=== PATIENT | male | born 1930 | race Caucasian/White ===

== ENCOUNTER 2017-03-08 03:25 | Inpatient (IN) | payer OTHER ==
[~2017-03-08] VITALS: Ht 177.8 cm; Wt 102.1 kg
[~2017-03-08 03:25] MED LIST: ASPIRIN325 MG PO; BACITRACIN28.4 GM TP; COLAZAL750 MG PO; DOXYCYCLINE HYC50 MG PO; FLOXIN OTIC SOLN5 ML RIGHT EAR; LEVOFLOXACIN500 MG PO; LISINOPRIL10 MG PO; NORVASC10 MG PO; PRILOSEC20 MG PO; TAMSULOSIN HCL0.4 MG PO; TOBRAMYCIN-DEXAM5 ML BOTH EYES; ZOFRAN4 MG PO
[2017-03-08 04:03] LABS: EOSINOPHIL (%) 1.2 % (0-5); EOSINOPHIL COUNT 0.1 K/uL (0-0.3); HEMATOCRIT 51.2 % (38.0-50.0); IMMATURE GRANULOCYTE (%) 0.4 % (0.0-0.7); INSTRUMENT ABS NEUTROPHIL CT 6.9 K/uL; LYMPHOCYTE COUNT 1.1 K/uL (1.0-2.8); MCH 32.4 PG (29.0-34.0); MCV 98.1 FL (86-99); MEAN PLAT.VOLUME 10.9 uM^3 (9.0-12.4); MONOCYTE COUNT 0.8 K/uL (0-0.8); NEUTROPHIL (%) 77.2 % (45-76); NEUTROPHIL COUNT 6.9 K/uL (1.8-6.4); PLATELET COUNT 208 K/uL (156-360); RBC DIS.WIDTH-CV 12.9 % (11.8-14.6); RBC DIS.WIDTH-SD 46.7 % (39-53); RED BLOOD COUNT 5.22 M/uL (4.00-5.50)
[2017-03-08 04:14] LABS: CHLORIDE 103 mEq/L (99-109); INTER. NORMALIZED RATIO 1.1; POTASSIUM 4.3 mEq/L (3.7-5.4); PROTHROMBIN TIME 11.3 (9.2-11.2); PTT 28.1 (25-32); SODIUM 139 mEq/L (136-147)
[2017-03-08 04:15] LABS: MAGNESIUM 1.9 mg/dL (1.3-2.7)
[2017-03-08 04:16] LABS: GLUCOSE 140 mg/dL (70-99)
[2017-03-08 04:18] LABS: ANION GAP 12 MEQ/L (2-14)
[2017-03-08 04:20] LABS: GFR ESTIMATE (CALCULATED) > 59 mL/min/
[2017-03-08 04:21] LABS: UREA NITROGEN (BUN) 23 mg/dL (9-23)
[2017-03-08 04:25] LABS: TROP-I INTERPRETATION NEGATIVE; TROPONIN-I 0.06 ng/mL (0.0-0.30)
[2017-03-08 08:26] LABS: D-DIMER ELISA 1.68 mg/L FEU (< 0.57)
[2017-03-08] MEDS ORDERED: FLOMAX0.4 MG PO (11:01)
[2017-03-08] MEDS ORDERED: METHYLPREDNISOLO4 M1 PO (11:04)
[2017-03-08] MEDS ORDERED: CEFTIN500 MG PO (11:04)
[2017-03-08 15:16] LABS: POINT-OF-CARE METER ID UU13113702
[2017-03-08 15:18] VITALS: BP 119/69
[2017-03-08 16:41] LABS: TROP-I INTERPRETATION NEGATIVE; TROPONIN-I 0.06 ng/mL (0.0-0.30)
[2017-03-08 19:43] VITALS: BP 119/67
[2017-03-09] VITALS (7 sets, daily range): BP systolic 96–140; BP diastolic 57–75
[2017-03-09 06:14] LABS: EOSINOPHIL (%) 0 % (0-5); HEMATOCRIT 46.6 % (38.0-50.0); IMMATURE GRANULOCYTE COUNT 0.1 K/uL; INSTRUMENT ABS NEUTROPHIL CT 10.7 K/uL; LYMPHOCYTE COUNT 0.3 K/uL (1.0-2.8); MCH 32.4 PG (29.0-34.0); MCHC 32.2 G/DL (30.0-36.0); MCV 100.6 FL (86-99); MEAN PLAT.VOLUME 11.3 uM^3 (9.0-12.4); MONOCYTE (%) 1.6 % (3-12); MONOCYTE COUNT 0.2 K/uL (0-0.8); NEUTROPHIL (%) 94.4 % (45-76); NEUTROPHIL COUNT 10.7 K/uL (1.8-6.4); PLATELET COUNT 209 K/uL (156-360); RBC DIS.WIDTH-CV 13.2 % (11.8-14.6); RBC DIS.WIDTH-SD 48.8 % (39-53); RED BLOOD COUNT 4.63 M/uL (4.00-5.50); WHITE BLOOD COUNT 11.3 K/uL (4.1-10.2)
[2017-03-09 06:42] LABS: ANION GAP 12 MEQ/L (2-14); CHLORIDE 101 MEQ/L (99-109); GFR ESTIMATE (CALCULATED) > 59 mL/min/; GLUCOSE 165 mg/dL (70-99); SAMPLE HEMOLYSIS CHECK 0; SAMPLE ICTERIC CHECK 0; SAMPLE LIPEMIA CHECK 0; SODIUM 134 MEQ/L (136-147); UREA NITROGEN (BUN) 31 mg/dL (9-23)
[2017-03-09 11:29] LABS: TROP-I INTERPRETATION NEGATIVE; TROPONIN-I 0.05 ng/mL (0.0-0.30)
[2017-03-09 16:50] LABS: POINT-OF-CARE METER ID UU14174216
[2017-03-09 21:22] LABS: POINT-OF-CARE METER ID UU14174216
[2017-03-10 03:00] VITALS: BP 147/69
[2017-03-10 07:06] LABS: EOSINOPHIL (%) 0 % (0-5); HEMATOCRIT 45.5 % (38.0-50.0); IMMATURE GRANULOCYTE (%) 0.9 % (0.0-0.7); IMMATURE GRANULOCYTE COUNT 0.1 K/uL; LYMPHOCYTE COUNT 0.3 K/uL (1.0-2.8); MCH 32.4 PG (29.0-34.0); MCHC 32.1 G/DL (30.0-36.0); MCV 100.9 FL (86-99); MEAN PLAT.VOLUME 11.1 uM^3 (9.0-12.4); MONOCYTE (%) 3.3 % (3-12); MONOCYTE COUNT 0.5 K/uL (0-0.8); NEUTROPHIL (%) 93.6 % (45-76); PLATELET COUNT 185 K/uL (156-360); RBC DIS.WIDTH-CV 13.1 % (11.8-14.6); RBC DIS.WIDTH-SD 48.6 % (39-53); RED BLOOD COUNT 4.51 M/uL (4.00-5.50); WHITE BLOOD COUNT 13.9 K/uL (4.1-10.2)
[2017-03-10 07:11] VITALS: BP 132/72
[2017-03-10 07:37] LABS: ALKALINE PHOSPHATASE 17 IU/L (3-129); ANION GAP 8 MEQ/L (2-14); CHLORIDE 97 MEQ/L (99-109); GFR ESTIMATE (CALCULATED) > 59 mL/min/; GLUCOSE 149 mg/dL (70-99); SAMPLE HEMOLYSIS CHECK 0; SAMPLE ICTERIC CHECK 0; SAMPLE LIPEMIA CHECK 0; SODIUM 132 MEQ/L (136-147); TOTAL BILIRUBIN 0.5 MG/DL (0.0-1.0); UREA NITROGEN (BUN) 39 mg/dL (9-23)
[2017-03-10 11:44] LABS: POINT-OF-CARE METER ID UU14174216
[2017-03-10 12:00] VITALS: BP 115/59
[2017-03-10 16:08] LABS: POINT-OF-CARE METER ID UU14174216
[2017-03-10 17:21] VITALS: BP 135/68
[2017-03-10 19:00] VITALS: BP 132/67
[2017-03-10 23:00] VITALS: BP 132/68
[2017-03-11 03:15] VITALS: BP 132/70
[2017-03-11 06:26] LABS: EOSINOPHIL (%) 0 % (0-5); HEMATOCRIT 43.1 % (38.0-50.0); IMMATURE GRANULOCYTE (%) 0.7 % (0.0-0.7); IMMATURE GRANULOCYTE COUNT 0.1 K/uL; INSTRUMENT ABS NEUTROPHIL CT 12.9 K/uL; LYMPHOCYTE COUNT 0.3 K/uL (1.0-2.8); MCH 32.3 PG (29.0-34.0); MCHC 32.5 G/DL (30.0-36.0); MCV 99.3 FL (86-99); MEAN PLAT.VOLUME 11.5 uM^3 (9.0-12.4); MONOCYTE (%) 3.3 % (3-12); MONOCYTE COUNT 0.5 K/uL (0-0.8); NEUTROPHIL (%) 93.8 % (45-76); NEUTROPHIL COUNT 12.9 K/uL (1.8-6.4); PLATELET COUNT 180 K/uL (156-360); RBC DIS.WIDTH-CV 13.1 % (11.8-14.6); RBC DIS.WIDTH-SD 47.8 % (39-53); RED BLOOD COUNT 4.34 M/uL (4.00-5.50); WHITE BLOOD COUNT 13.8 K/uL (4.1-10.2)
[2017-03-11 07:11] LABS: ALKALINE PHOSPHATASE 16 IU/L (3-129); ANION GAP 7 MEQ/L (2-14); CHLORIDE 99 MEQ/L (99-109); GFR ESTIMATE (CALCULATED) > 59 mL/min/; GLUCOSE 154 mg/dL (70-99); SAMPLE HEMOLYSIS CHECK 0; SAMPLE ICTERIC CHECK 0; SAMPLE LIPEMIA CHECK 0; SODIUM 133 MEQ/L (136-147); TOTAL BILIRUBIN 0.6 MG/DL (0.0-1.0); UREA NITROGEN (BUN) 35 mg/dL (9-23)
[2017-03-11 07:34] LABS: POINT-OF-CARE METER ID UU14174216
[2017-03-11 09:00] VITALS: BP 144/72
[2017-03-11 11:16] LABS: POINT-OF-CARE METER ID UU14174216
[2017-03-11 13:00] VITALS: BP 123/67
[2017-03-11 16:22] LABS: POINT-OF-CARE METER ID UU14174216
[2017-03-11 18:00] VITALS: BP 137/77
[2017-03-11 21:24] VITALS: BP 127/77
[2017-03-11 22:02] LABS: POINT-OF-CARE METER ID UU14174216
[2017-03-12 00:35] VITALS: BP 123/67
[2017-03-12 04:32] VITALS: BP 147/81
[2017-03-12 06:17] LABS: EOSINOPHIL (%) 0 % (0-5); IMMATURE GRANULOCYTE (%) 0.8 % (0.0-0.7); IMMATURE GRANULOCYTE COUNT 0.1 K/uL; INSTRUMENT ABS NEUTROPHIL CT 11.4 K/uL; LYMPHOCYTE COUNT 0.2 K/uL (1.0-2.8); MCH 31.9 PG (29.0-34.0); MCV 99.8 FL (86-99); MONOCYTE (%) 3.5 % (3-12); MONOCYTE COUNT 0.4 K/uL (0-0.8); NEUTROPHIL (%) 93.7 % (45-76); NEUTROPHIL COUNT 11.4 K/uL (1.8-6.4); PLATELET COUNT 173 K/uL (156-360); RBC DIS.WIDTH-CV 13.2 % (11.8-14.6); RBC DIS.WIDTH-SD 48.1 % (39-53); RED BLOOD COUNT 4.51 M/uL (4.00-5.50); WHITE BLOOD COUNT 12.1 K/uL (4.1-10.2)
[2017-03-12 06:47] LABS: ALKALINE PHOSPHATASE 18 IU/L (3-129); ANION GAP 7 MEQ/L (2-14); CHLORIDE 98 MEQ/L (99-109); GFR ESTIMATE (CALCULATED) > 59 mL/min/; GLUCOSE 161 mg/dL (70-99); POTASSIUM 4.6 MEQ/L (3.7-5.4); SAMPLE HEMOLYSIS CHECK 0; SAMPLE ICTERIC CHECK 0; SAMPLE LIPEMIA CHECK 0; SODIUM 136 MEQ/L (136-147); TOTAL BILIRUBIN 0.7 MG/DL (0.0-1.0); UREA NITROGEN (BUN) 31 mg/dL (9-23)
[2017-03-12 09:00] VITALS: BP 145/83
[2017-03-12 12:00] VITALS: BP 141/76
[2017-03-12 12:10] LABS: POINT-OF-CARE METER ID UU13113781
[2017-03-12 16:22] VITALS: BP 137/75
[2017-03-12 20:16] VITALS: BP 147/83
[2017-03-12 21:08] LABS: POINT-OF-CARE METER ID UU14174216
[2017-03-13 00:13] VITALS: BP 124/75
[2017-03-13 04:24] VITALS: BP 134/74
[2017-03-13] MEDS ORDERED: LASIX20 MG PO (07:40)
[2017-03-13] MEDS ORDERED: CARDIZEM CD,CA240 MG PO (07:40)
[2017-03-13] MEDS ORDERED: XARELTO20 MG PO (07:40)
[2017-03-13] MEDS ORDERED: DUONEB 2.5-0.5 M3 ML AEROSOL (07:40)
[2017-03-13] MEDS ORDERED: PREDNISONE10 M1 PO (07:40)
[2017-03-13 07:43] LABS: POINT-OF-CARE METER ID UU14174216
[2017-03-13 09:00] VITALS: BP 143/70
[2017-03-13 11:27] LABS: POINT-OF-CARE METER ID UU14174216
== END 2017-03-13 13:17 | DRG 308 ==
LOC: EME → EDBD 03:25 → EME 03:25 → 4EAST 07:17 → EDOF 07:17 → 4EAST 15:10
PROVIDERS: Emergency Medicine; Internal Medicine; Nurse Practitioner Adult Health; Pediatrics
DX: I48.91 Unspecified atrial fibrillation (principal); J18.9 Pneumonia, unspecified organism; J81.0 Acute pulmonary edema; J90 Pleural effusion, not elsewhere classified; I50.30 Unspecified diastolic (congestive) heart failure; I10 Essential (primary) hypertension; K21.9 Gastro-esophageal reflux disease without esophagitis; N40.0 Benign prostatic hyperplasia without lower urinary tract symptoms; E11.9 Type 2 diabetes mellitus without complications; I25.10 Atherosclerotic heart disease of native coronary artery without angina pectoris; E66.9 Obesity, unspecified; I48.92 Unspecified atrial flutter; I35.0 Nonrheumatic aortic (valve) stenosis; I44.7 Left bundle-branch block, unspecified; H91.93 Unspecified hearing loss, bilateral; Z68.33 Body mass index [BMI] 33.0-33.9, adult; Z87.891 Personal history of nicotine dependence; Z95.5 Presence of coronary angioplasty implant and graft; Z80.0 Family history of malignant neoplasm of digestive organs
CPT/HCPCS: 71010; 71020; 71275; 80048; 80053; 82948; 83735; 84484; 85025; 85379; 85610; 85730; 93005; 93306; 94640; 94640 76; 94799; 97530 GO; 99202; 99281; 99285; J0456; J0696; J1650; J1815; J1940; J2930; J7050

== ENCOUNTER 2017-09-03 07:44 | Emergency (ER) | payer OTHER ==
[~2017-09-03] VITALS: Ht 180.3 cm; Wt 96.0 kg
[~2017-09-03 07:44] MED LIST changes: +CARDIZEM CD,CA240 MG PO; +CEFTIN500 MG PO; +DUONEB 2.5-0.5 M3 ML AEROSOL; +FLOMAX0.4 MG PO; +LASIX20 MG PO; +METHYLPREDNISOLO4 M1 PO; +PREDNISONE10 M1 PO; +XARELTO20 MG PO
[2017-09-03 08:14] LABS: EOSINOPHIL (%) 2.8 % (0-5); EOSINOPHIL COUNT 0.2 K/uL (0-0.3); HEMATOCRIT 46.4 % (38.0-50.0); IMMATURE GRANULOCYTE (%) 0.3 % (0.0-0.7); INSTRUMENT ABS NEUTROPHIL CT 4.4 K/uL; LYMPHOCYTE COUNT 0.9 K/uL (1.0-2.8); MCH 30.6 PG (29.0-34.0); MCHC 32.8 G/DL (30.0-36.0); MCV 93.4 FL (86-99); MEAN PLAT.VOLUME 9.9 uM^3 (9.0-12.4); MONOCYTE COUNT 0.8 K/uL (0-0.8); NEUTROPHIL (%) 69.5 % (45-76); NEUTROPHIL COUNT 4.4 K/uL (1.8-6.4); PLATELET COUNT 209 K/uL (156-360); RBC DIS.WIDTH-CV 13.4 % (11.8-14.6); RBC DIS.WIDTH-SD 45.9 % (39-53); RED BLOOD COUNT 4.97 M/uL (4.00-5.50); WHITE BLOOD COUNT 6.4 K/uL (4.1-10.2)
[2017-09-03 08:46] LABS: ANION GAP 7 MEQ/L (2-14); CHLORIDE 100 MEQ/L (99-109); POTASSIUM 4.3 MEQ/L (3.7-5.4); SAMPLE HEMOLYSIS CHECK 0; SAMPLE ICTERIC CHECK 0; SAMPLE LIPEMIA CHECK 0; SODIUM 138 MEQ/L (136-147)
[2017-09-03 08:51] LABS: GFR ESTIMATE (CALCULATED) > 59 mL/min/; GLUCOSE 132 mg/dL (70-99); UREA NITROGEN (BUN) 15 mg/dL (9-23)
[2017-09-03 09:24] LABS: INFLUENZA A VIRAL ANTIGEN NEGATIVE; INFLUENZA B VIRAL ANTIGEN NEGATIVE
[2017-09-03] MEDS ORDERED: ZITHROMAX Z-PA250 MG PO (10:47)
[2017-09-03 11:25] VITALS: BP 137/83
== END 2017-09-03 11:25 | disposition home or self-care (01) ==
LOC: EME 07:44
PROVIDERS: Emergency Medicine
DX: J20.9 Acute bronchitis, unspecified (principal); J02.9 Acute pharyngitis, unspecified; R09.81 Nasal congestion; I44.7 Left bundle-branch block, unspecified; I25.2 Old myocardial infarction; Z95.1 Presence of aortocoronary bypass graft
CPT/HCPCS: 71020; 80048; 85025; 87502; 93005; 99281; 99284

== ENCOUNTER 2018-02-11 11:11 | Inpatient (IN) | payer OTHER ==
[~2018-02-11] VITALS: Ht 180.3 cm; Wt 180.3 kg
[~2018-02-11 11:11] MED LIST changes: +ZITHROMAX Z-PA250 MG PO
[2018-02-11 11:35] LABS: HEMOGLOBIN 11.9 G/DL (12.5-16.6); MCH 29.5 PG (29.0-34.0); MCHC 32.2 G/DL (30.0-36.0); MCV 91.8 FL (86-99); PLATELET COUNT 276 K/uL (156-360); RBC DIS.WIDTH-CV 14.2 % (11.8-14.6); RBC DIS.WIDTH-SD 47.8 % (39-53); RED BLOOD COUNT 4.03 M/uL (4.00-5.50); WHITE BLOOD COUNT 6.1 K/uL (4.1-10.2)
[2018-02-11 11:43] LABS: CHLORIDE 103 mEq/L (99-109); POTASSIUM 4.3 mEq/L (3.7-5.4); SODIUM 138 mEq/L (136-147)
[2018-02-11 11:44] LABS: GLUCOSE 119 mg/dL (70-99)
[2018-02-11 11:48] LABS: CREATININE 0.9 mg/dL (0.6-1.3); GFR ESTIMATE (CALCULATED) > 59 mL/min/ (58.99-99999)
[2018-02-11 11:49] LABS: UREA NITROGEN (BUN) 11 mg/dL (9-23)
[2018-02-11 11:55] LABS: TROP-I INTERPRETATION NEGATIVE; TROPONIN-I 0.23 ng/mL (0.0-0.30)
[2018-02-11 14:16] LABS: HDL CHOLESTEROL 28 MG/DL (Desirable>=40); LDL CHOLESTEROL 66 mg/dL (Desirable<100); NON-HDL CHOLESTEROL 75 mg/dL (Desirable<160); TOTAL CHOLESTEROL 103 mg/dL (Desirable<200); TRIGLYCERIDES 46 MG/DL (Normal: <150)
[2018-02-11] MEDS ORDERED: CARTIA XT240 MG PO (14:51)
[2018-02-11] MEDS ORDERED: PROAIR HFA8.5 GM IH (14:58)
[2018-02-11] MEDS ORDERED: LOSARTAN POTASS25 MG PO (14:58)
[2018-02-11] MEDS ORDERED: ASPIR-LOW81 MG PO (14:59)
[2018-02-11] MEDS ORDERED: ADVAIR 250/501 DISK IH (15:00)
[2018-02-11 15:05] VITALS: BP 133/76
[2018-02-11 18:03] LABS: TROP-I INTERPRETATION NEGATIVE; TROPONIN-I 0.26 ng/mL (0.0-0.30)
[2018-02-11 20:00] VITALS: BP 104/62
[2018-02-11 23:00] VITALS: BP 82/52
[2018-02-12 01:25] LABS: TROP-I INTERPRETATION NEGATIVE; TROPONIN-I 0.28 ng/mL (0.0-0.30)
[2018-02-12 03:32] VITALS: BP 107/62
[2018-02-12 05:46] LABS: HEMATOCRIT 34.7 % (38.0-50.0); HEMOGLOBIN 10.6 G/DL (12.5-16.6); MCH 28.6 PG (29.0-34.0); MCHC 30.5 G/DL (30.0-36.0); MCV 93.5 FL (86-99); PLATELET COUNT 258 K/uL (156-360); RBC DIS.WIDTH-CV 14.4 % (11.8-14.6); RBC DIS.WIDTH-SD 49.1 % (39-53); RED BLOOD COUNT 3.71 M/uL (4.00-5.50); WHITE BLOOD COUNT 6.8 K/uL (4.1-10.2)
[2018-02-12 06:08] LABS: CHLORIDE 101 MEQ/L (99-109); CREATININE 1.1 MG/DL (0.6-1.3); GFR ESTIMATE (CALCULATED) > 59 mL/min/ (58.99-99999); GLUCOSE 114 mg/dL (70-99); POTASSIUM 4.5 MEQ/L (3.7-5.4); SODIUM 138 MEQ/L (136-147); UREA NITROGEN (BUN) 14 mg/dL (9-23)
[2018-02-12 10:13] LABS: TROP-I INTERPRETATION NEGATIVE
[2018-02-12 10:37] VITALS: BP 100/55
[2018-02-12 15:54] VITALS: BP 164/71
[2018-02-12 18:30] VITALS: BP 110/67
[2018-02-12 19:30] VITALS: BP 115/64
[2018-02-12 23:20] VITALS: BP 107/65
[2018-02-13 04:13] VITALS: BP 108/65
[2018-02-13 05:47] LABS: BASOPHIL (%) 0.5 % (0-1); EOSINOPHIL (%) 2.5 % (0-5); EOSINOPHIL COUNT 0.2 K/uL (0-0.3); HEMOGLOBIN 11.3 G/DL (12.5-16.6); IMMATURE GRANULOCYTE (%) 0.2 % (0.0-0.7); LYMPHOCYTE (%) 20.1 % (15-42); LYMPHOCYTE COUNT 1.2 K/uL (1.0-2.8); MCH 28.7 PG (29.0-34.0); MCHC 30.5 G/DL (30.0-36.0); MCV 93.9 FL (86-99); MONOCYTE (%) 14.6 % (3-12); MONOCYTE COUNT 0.9 K/uL (0-0.8); NEUTROPHIL (%) 62.1 % (45-76); NEUTROPHIL COUNT 3.8 K/uL (1.8-6.4); PLATELET COUNT 253 K/uL (156-360); RBC DIS.WIDTH-CV 14.4 % (11.8-14.6); RBC DIS.WIDTH-SD 49.6 % (39-53); RED BLOOD COUNT 3.94 M/uL (4.00-5.50)
[2018-02-13 06:34] LABS: CHLORIDE 99 MEQ/L (99-109); CREATININE 0.9 MG/DL (0.6-1.3); GFR ESTIMATE (CALCULATED) > 59 mL/min/ (58.99-99999); GLUCOSE 120 mg/dL (70-99); SODIUM 137 MEQ/L (136-147); UREA NITROGEN (BUN) 14 mg/dL (9-23)
[2018-02-13 09:00] VITALS: BP 116/70
[2018-02-13] MEDS ORDERED: ATORVASTATIN CA40 MG PO (10:00)
[2018-02-13] MEDS ORDERED: CARVEDILOL3.125 MG PO (10:00)
[2018-02-13] MEDS ORDERED: IMDUR30 MG PO (10:00)
[2018-02-13] MEDS ORDERED: CLOPIDOGREL75 MG PO (10:00)
[2018-02-13] MEDS ORDERED: NITROSTAT0.4 MG SL (10:00)
[2018-02-13] MEDS ORDERED: ASPIR-LOW81 MG PO (10:01)
== END 2018-02-13 11:28 | disposition home or self-care (01) | DRG 286 ==
LOC: EME 11:11 → EDOF 12:36 → 5WEST 12:36 → EDOF 12:36 → ENRESERV 12:37 → 5WEST 14:57 → ENRESERV 02-12 11:09 → 5WEST 02-12 11:51 → ENRESERV 02-12 14:43 → 5WEST 02-12 14:45 → ENRESERV 02-12 16:22 → 5WEST 02-12 16:30 → 4EAST 02-12 18:28
PROVIDERS: Emergency Medicine; Internal Medicine
DX: I25.110 Atherosclerotic heart disease of native coronary artery with unstable angina pectoris (principal); I11.0 Hypertensive heart disease with heart failure; I50.23 Acute on chronic systolic (congestive) heart failure; I95.9 Hypotension, unspecified; K92.2 Gastrointestinal hemorrhage, unspecified; E11.9 Type 2 diabetes mellitus without complications; E78.5 Hyperlipidemia, unspecified; I08.0 Rheumatic disorders of both mitral and aortic valves; I42.9 Cardiomyopathy, unspecified; I44.7 Left bundle-branch block, unspecified; I48.0 Paroxysmal atrial fibrillation; K21.9 Gastro-esophageal reflux disease without esophagitis; N40.0 Benign prostatic hyperplasia without lower urinary tract symptoms; Z79.01 Long term (current) use of anticoagulants; I25.2 Old myocardial infarction; Z95.1 Presence of aortocoronary bypass graft
CPT/HCPCS: 71045; 71046; 80048; 80061; 83880; 84484; 85025; 85027; 85347; 93005; 99281; 99285; C1769; C1887; C1894; G0378; J0461; J1644; J1940; J2250; J2405

== ENCOUNTER 2018-04-23 16:46 | Inpatient (IN) | payer OTHER ==
[~2018-04-23] VITALS: Ht 177.8 cm; Wt 116.7 kg
[~2018-04-23 16:46] MED LIST changes: +ADVAIR 250/501 DISK IH; +ASPIR-LOW81 MG PO; +ATORVASTATIN CA40 MG PO; +CARTIA XT240 MG PO; +CARVEDILOL3.125 MG PO; +CLOPIDOGREL75 MG PO; +IMDUR30 MG PO; +LOSARTAN POTASS25 MG PO; +NITROSTAT0.4 MG SL; +PROAIR HFA8.5 GM IH
[2018-04-23 17:18] LABS: BASOPHIL (%) 0.3 % (0-1); EOSINOPHIL (%) 4.7 % (0-5); EOSINOPHIL COUNT 0.3 K/uL (0-0.3); HEMOGLOBIN 11.4 G/DL (12.5-16.6); IMMATURE GRANULOCYTE (%) 0.3 % (0.0-0.7); MCHC 31.7 G/DL (30.0-36.0); MCV 85.1 FL (86-99); MONOCYTE COUNT 0.6 K/uL (0-0.8); NEUTROPHIL (%) 68.7 % (45-76); NEUTROPHIL COUNT 4.3 K/uL (1.8-6.4); RBC DIS.WIDTH-CV 17.2 % (11.8-14.6); RBC DIS.WIDTH-SD 53.2 % (39-53); RED BLOOD COUNT 4.23 M/uL (4.00-5.50); WHITE BLOOD COUNT 6.3 K/uL (4.1-10.2)
[2018-04-23 17:28] LABS: ALBUMIN 3.6 g/dL (3.2-4.8); CHLORIDE 99 mEq/L (99-109)
[2018-04-23 17:29] LABS: POTASSIUM 4.3 mEq/L (3.7-5.4); SODIUM 139 mEq/L (136-147)
[2018-04-23 17:30] LABS: PLATELET COUNT 373 K/uL (156-360)
[2018-04-23 17:31] LABS: GLUCOSE 97 mg/dL (70-99); TOTAL PROTEIN 6.4 g/dL (6.4-8.3)
[2018-04-23 17:33] LABS: TOTAL BILIRUBIN 0.6 mg/dL (0.0-1.0)
[2018-04-23 17:34] LABS: ALKALINE PHOSPHATASE 29 IU/L (3-129); CREATININE 1.1 mg/dL (0.6-1.3); GFR ESTIMATE (CALCULATED) > 59 mL/min/ (58.99-99999)
[2018-04-23 17:36] LABS: AST (GOT) 15 IU/L (2-34); UREA NITROGEN (BUN) 23 mg/dL (9-23)
[2018-04-23 17:37] LABS: ALT (GPT) 16 IU/L (3-49)
[2018-04-23 17:41] LABS: TROP-I INTERPRETATION NEGATIVE; TROPONIN-I 0.03 ng/mL (0.0-0.30)
[2018-04-23] MEDS ORDERED: CLOPIDOGREL75 MG PO (19:25)
[2018-04-23] MEDS ORDERED: IMDUR30 MG PO (19:26)
[2018-04-23] MEDS ORDERED: ATORVASTATIN CA40 MG PO (19:26)
[2018-04-23] MEDS ORDERED: COREG6.25 M1 PO (19:27)
[2018-04-23] MEDS ORDERED: LO-DOSE ASPIRIN81 M1 PO (19:28)
[2018-04-23] MEDS ORDERED: COZAAR25 MG PO (19:29)
[2018-04-23] MEDS ORDERED: LASIX40 MG PO (19:29)
[2018-04-23] MEDS ORDERED: TAZTIA XT240 M1 PO (19:29)
[2018-04-23 19:34] LABS: INTER. NORMALIZED RATIO 1.2
[2018-04-23 19:36] LABS: PTT 29.8 SEC (25-37)
[2018-04-23 22:10] VITALS: BP 139/77
[2018-04-23 23:36] VITALS: BP 138/67
[2018-04-24 00:55] LABS: TROP-I INTERPRETATION NEGATIVE; TROPONIN-I 0.03 ng/mL (0.0-0.30)
[2018-04-24 03:39] VITALS: BP 108/53
[2018-04-24 05:51] LABS: HEMATOCRIT 36.3 % (38.0-50.0); MCH 25.9 PG (29.0-34.0); MCHC 30.3 G/DL (30.0-36.0); MCV 85.4 FL (86-99); PLATELET COUNT 341 K/uL (156-360); RBC DIS.WIDTH-CV 17.4 % (11.8-14.6); RBC DIS.WIDTH-SD 53.9 % (39-53); RED BLOOD COUNT 4.25 M/uL (4.00-5.50); WHITE BLOOD COUNT 5.8 K/uL (4.1-10.2)
[2018-04-24 05:57] LABS: TROP-I INTERPRETATION NEGATIVE; TROPONIN-I 0.02 ng/mL (0.0-0.30)
[2018-04-24 06:16] LABS: ALBUMIN 3.3 G/DL (3.2-4.8); ALKALINE PHOSPHATASE 28 IU/L (3-129); ALT (GPT) 13 IU/L (3-49); AST (GOT) 12 IU/L (2-34); CHLORIDE 98 MEQ/L (99-109); GFR ESTIMATE (CALCULATED) > 59 mL/min/ (58.99-99999); GLUCOSE 95 mg/dL (70-99); SODIUM 138 MEQ/L (136-147); TOTAL BILIRUBIN 0.7 MG/DL (0.0-1.0); TOTAL PROTEIN 6.2 G/DL (6.4-8.3); UREA NITROGEN (BUN) 20 mg/dL (9-23)
[2018-04-24 07:56] VITALS: BP 108/56
[2018-04-24 12:14] VITALS: BP 92/55
[2018-04-24 15:59] VITALS: BP 94/52
[2018-04-24 19:21] VITALS: BP 107/56
[2018-04-24 23:58] VITALS: BP 123/61
[2018-04-25] VITALS (10 sets, daily range): BP systolic 74–119; BP diastolic 50–60
[2018-04-25 14:05] LABS: ALBUMIN 3.4 G/DL (3.2-4.8); ALKALINE PHOSPHATASE 24 IU/L (3-129); ALT (GPT) 10 IU/L (3-49); AST (GOT) 11 IU/L (2-34); CHLORIDE 100 MEQ/L (99-109); CREATININE 0.9 MG/DL (0.6-1.3); GFR ESTIMATE (CALCULATED) > 59 mL/min/ (58.99-99999); GLUCOSE 112 mg/dL (70-99); POTASSIUM 4.2 MEQ/L (3.7-5.4); SODIUM 135 MEQ/L (136-147); TOTAL BILIRUBIN 0.6 MG/DL (0.0-1.0); TOTAL PROTEIN 5.8 G/DL (6.4-8.3); UREA NITROGEN (BUN) 17 mg/dL (9-23)
[2018-04-25 14:08] LABS: TROP-I INTERPRETATION NEGATIVE; TROPONIN-I 0.02 ng/mL (0.0-0.30)
[2018-04-25 19:22] LABS: INTER. NORMALIZED RATIO 1.7
[2018-04-26] VITALS (7 sets, daily range): BP systolic 89–140; BP diastolic 49–69
[2018-04-26 05:52] LABS: HEMATOCRIT 33.9 % (38.0-50.0); HEMOGLOBIN 10.3 G/DL (12.5-16.6); MCH 26.5 PG (29.0-34.0); MCHC 30.4 G/DL (30.0-36.0); MCV 87.1 FL (86-99); PLATELET COUNT 290 K/uL (156-360); RBC DIS.WIDTH-CV 17.6 % (11.8-14.6); RBC DIS.WIDTH-SD 55.9 % (39-53); RED BLOOD COUNT 3.89 M/uL (4.00-5.50); WHITE BLOOD COUNT 5.7 K/uL (4.1-10.2)
[2018-04-26 06:24] LABS: CHLORIDE 100 MEQ/L (99-109); GFR ESTIMATE (CALCULATED) > 59 mL/min/ (58.99-99999); GLUCOSE 99 mg/dL (70-99); POTASSIUM 4.2 MEQ/L (3.7-5.4); SODIUM 137 MEQ/L (136-147); UREA NITROGEN (BUN) 16 mg/dL (9-23)
[2018-04-26 06:28] LABS: TROP-I INTERPRETATION NEGATIVE; TROPONIN-I 0.02 ng/mL (0.0-0.30)
[2018-04-26 10:59] LABS: INTER. NORMALIZED RATIO 1.5
[2018-04-27 00:34] VITALS: BP 123/59
[2018-04-27 04:00] VITALS: BP 117/59
[2018-04-27 06:04] LABS: INTER. NORMALIZED RATIO 1.3
[2018-04-27 06:09] LABS: HEMATOCRIT 36.3 % (38.0-50.0); MCH 26.3 PG (29.0-34.0); MCHC 30.3 G/DL (30.0-36.0); MCV 86.8 FL (86-99); PLATELET COUNT 306 K/uL (156-360); RBC DIS.WIDTH-CV 17.4 % (11.8-14.6); RBC DIS.WIDTH-SD 55.7 % (39-53); RED BLOOD COUNT 4.18 M/uL (4.00-5.50); WHITE BLOOD COUNT 6.2 K/uL (4.1-10.2)
[2018-04-27 06:24] LABS: CHLORIDE 98 MEQ/L (99-109); CREATININE 1.1 MG/DL (0.6-1.3); GFR ESTIMATE (CALCULATED) > 59 mL/min/ (58.99-99999); GLUCOSE 103 mg/dL (70-99); POTASSIUM 4.3 MEQ/L (3.7-5.4); SODIUM 137 MEQ/L (136-147); UREA NITROGEN (BUN) 16 mg/dL (9-23)
[2018-04-27 08:07] VITALS: BP 127/70
[2018-04-27 15:11] VITALS: BP 112/57
[2018-04-28 00:32] VITALS: BP 102/52
[2018-04-28 05:50] LABS: BASOPHIL (%) 0.7 % (0-1); EOSINOPHIL (%) 5.4 % (0-5); EOSINOPHIL COUNT 0.3 K/uL (0-0.3); HEMATOCRIT 37.5 % (38.0-50.0); HEMOGLOBIN 11.4 G/DL (12.5-16.6); IMMATURE GRANULOCYTE (%) 0.3 % (0.0-0.7); LYMPHOCYTE (%) 18.9 % (15-42); LYMPHOCYTE COUNT 1.1 K/uL (1.0-2.8); MCH 26.3 PG (29.0-34.0); MCHC 30.4 G/DL (30.0-36.0); MCV 86.4 FL (86-99); MONOCYTE (%) 9.6 % (3-12); MONOCYTE COUNT 0.6 K/uL (0-0.8); NEUTROPHIL (%) 65.1 % (45-76); NEUTROPHIL COUNT 3.9 K/uL (1.8-6.4); PLATELET COUNT 300 K/uL (156-360); RBC DIS.WIDTH-CV 17.7 % (11.8-14.6); RBC DIS.WIDTH-SD 55.8 % (39-53); RED BLOOD COUNT 4.34 M/uL (4.00-5.50); WHITE BLOOD COUNT 5.9 K/uL (4.1-10.2)
[2018-04-28 06:14] LABS: ALBUMIN 3.4 G/DL (3.2-4.8); ALKALINE PHOSPHATASE 23 IU/L (3-129); ALT (GPT) 16 IU/L (3-49); AST (GOT) 14 IU/L (2-34); CHLORIDE 100 MEQ/L (99-109); GFR ESTIMATE (CALCULATED) > 59 mL/min/ (58.99-99999); GLUCOSE 93 mg/dL (70-99); POTASSIUM 4.2 MEQ/L (3.7-5.4); SODIUM 139 MEQ/L (136-147); TOTAL BILIRUBIN 0.7 MG/DL (0.0-1.0); TOTAL PROTEIN 6.2 G/DL (6.4-8.3); UREA NITROGEN (BUN) 14 mg/dL (9-23)
[2018-04-28 07:38] VITALS: BP 126/64
[2018-04-28 10:36] LABS: INTER. NORMALIZED RATIO 1.3
[2018-04-28 15:57] VITALS: BP 104/60
[2018-04-28 23:43] VITALS: BP 139/73
[2018-04-29 07:01] LABS: BASOPHIL (%) 0.5 % (0-1); EOSINOPHIL (%) 4.8 % (0-5); EOSINOPHIL COUNT 0.3 K/uL (0-0.3); HEMOGLOBIN 12.1 G/DL (12.5-16.6); IMMATURE GRANULOCYTE (%) 0.3 % (0.0-0.7); LYMPHOCYTE (%) 17.7 % (15-42); LYMPHOCYTE COUNT 1.1 K/uL (1.0-2.8); MCH 25.9 PG (29.0-34.0); MCHC 30.3 G/DL (30.0-36.0); MCV 85.7 FL (86-99); MONOCYTE (%) 9.3 % (3-12); MONOCYTE COUNT 0.6 K/uL (0-0.8); NEUTROPHIL (%) 67.4 % (45-76); NEUTROPHIL COUNT 4.1 K/uL (1.8-6.4); PLATELET COUNT 287 K/uL (156-360); RBC DIS.WIDTH-CV 17.4 % (11.8-14.6); RED BLOOD COUNT 4.67 M/uL (4.00-5.50); WHITE BLOOD COUNT 6.1 K/uL (4.1-10.2)
[2018-04-29 07:06] LABS: INTER. NORMALIZED RATIO 1.4
[2018-04-29 07:23] LABS: ALBUMIN 3.6 G/DL (3.2-4.8); ALKALINE PHOSPHATASE 25 IU/L (3-129); ALT (GPT) 16 IU/L (3-49); AST (GOT) 15 IU/L (2-34); CHLORIDE 99 MEQ/L (99-109); GFR ESTIMATE (CALCULATED) > 59 mL/min/ (58.99-99999); GLUCOSE 103 mg/dL (70-99); POTASSIUM 4.2 MEQ/L (3.7-5.4); SODIUM 136 MEQ/L (136-147); TOTAL BILIRUBIN 0.7 MG/DL (0.0-1.0); TOTAL PROTEIN 6.3 G/DL (6.4-8.3); UREA NITROGEN (BUN) 14 mg/dL (9-23)
[2018-04-29 07:34] VITALS: BP 124/62
[2018-04-29 09:21] VITALS: BP 118/58
[2018-04-29 15:27] VITALS: BP 99/57
[2018-04-29 19:17] VITALS: BP 101/63
[2018-04-30] VITALS (10 sets, daily range): BP systolic 99–125; BP diastolic 50–71
[2018-04-30 06:18] LABS: BASOPHIL (%) 0.7 % (0-1); EOSINOPHIL (%) 4.4 % (0-5); EOSINOPHIL COUNT 0.3 K/uL (0-0.3); HEMOGLOBIN 11.3 G/DL (12.5-16.6); IMMATURE GRANULOCYTE (%) 0.4 % (0.0-0.7); LYMPHOCYTE (%) 21.9 % (15-42); LYMPHOCYTE COUNT 1.2 K/uL (1.0-2.8); MCH 26.2 PG (29.0-34.0); MCHC 30.5 G/DL (30.0-36.0); MCV 85.8 FL (86-99); MONOCYTE (%) 10.4 % (3-12); MONOCYTE COUNT 0.6 K/uL (0-0.8); NEUTROPHIL (%) 62.2 % (45-76); NEUTROPHIL COUNT 3.5 K/uL (1.8-6.4); PLATELET COUNT 264 K/uL (156-360); RBC DIS.WIDTH-CV 17.7 % (11.8-14.6); RBC DIS.WIDTH-SD 55.8 % (39-53); RED BLOOD COUNT 4.31 M/uL (4.00-5.50); WHITE BLOOD COUNT 5.7 K/uL (4.1-10.2)
[2018-04-30 06:24] LABS: INTER. NORMALIZED RATIO 1.7
[2018-04-30 06:49] LABS: CHLORIDE 100 MEQ/L (99-109); GFR ESTIMATE (CALCULATED) > 59 mL/min/ (58.99-99999); GLUCOSE 94 mg/dL (70-99); POTASSIUM 4.3 MEQ/L (3.7-5.4); SODIUM 137 MEQ/L (136-147); UREA NITROGEN (BUN) 14 mg/dL (9-23)
[2018-05-01 03:51] VITALS: BP 122/58
[2018-05-01 05:19] LABS: BASOPHIL (%) 0.5 % (0-1); EOSINOPHIL (%) 5.3 % (0-5); EOSINOPHIL COUNT 0.3 K/uL (0-0.3); HEMATOCRIT 36.2 % (38.0-50.0); HEMOGLOBIN 11.3 G/DL (12.5-16.6); IMMATURE GRANULOCYTE (%) 0.3 % (0.0-0.7); LYMPHOCYTE (%) 19.3 % (15-42); LYMPHOCYTE COUNT 1.2 K/uL (1.0-2.8); MCH 26.9 PG (29.0-34.0); MCHC 31.2 G/DL (30.0-36.0); MCV 86.2 FL (86-99); MONOCYTE (%) 11.5 % (3-12); MONOCYTE COUNT 0.7 K/uL (0-0.8); NEUTROPHIL (%) 63.1 % (45-76); NRBC (%) 0.3 /100 WBC (0-0); PLATELET COUNT 226 K/uL (156-360); RBC DIS.WIDTH-CV 18.1 % (11.8-14.6); RBC DIS.WIDTH-SD 56.9 % (39-53); WHITE BLOOD COUNT 6.4 K/uL (4.1-10.2)
[2018-05-01 06:03] LABS: CHLORIDE 102 MEQ/L (99-109); CREATININE 0.9 MG/DL (0.6-1.3); GFR ESTIMATE (CALCULATED) > 59 mL/min/ (58.99-99999); GLUCOSE 106 mg/dL (70-99); POTASSIUM 4.1 MEQ/L (3.7-5.4); SODIUM 136 MEQ/L (136-147); UREA NITROGEN (BUN) 13 mg/dL (9-23)
[2018-05-01 06:09] LABS: INTER. NORMALIZED RATIO 2.2
[2018-05-01 07:38] VITALS: BP 120/56
[2018-05-01 11:27] VITALS: BP 107/58
[2018-05-01] MEDS ORDERED: CARVEDILOL3.125 MG PO (12:50)
[2018-05-01] MEDS ORDERED: CORDARONE200 MG PO (12:50)
[2018-05-01] MEDS ORDERED: COUMADIN3 MG PO (12:50)
[2018-05-01] MEDS ORDERED: AMIODARONE HCL200 MG PO (12:51)
== END 2018-05-01 14:07 | disposition home health service (06) | DRG 176 ==
LOC: EME 16:46 → 5SOUTH 20:46 → EDOF 20:46 → ENRESERV 20:53 → 5SOUTH 22:11
PROVIDERS: Emergency Medicine; Family Medicine; Hospitalist; Physician Assistant
DX: I26.99 Other pulmonary embolism without acute cor pulmonale (principal); I82.421 Acute embolism and thrombosis of right iliac vein; I47.2 Ventricular tachycardia; I08.0 Rheumatic disorders of both mitral and aortic valves; I95.9 Hypotension, unspecified; I11.0 Hypertensive heart disease with heart failure; I50.22 Chronic systolic (congestive) heart failure; I25.10 Atherosclerotic heart disease of native coronary artery without angina pectoris; I42.9 Cardiomyopathy, unspecified; I48.0 Paroxysmal atrial fibrillation; D63.8 Anemia in other chronic diseases classified elsewhere; R42 Dizziness and giddiness; I25.2 Old myocardial infarction; K57.30 Diverticulosis of large intestine without perforation or abscess without bleeding; K21.9 Gastro-esophageal reflux disease without esophagitis; E11.9 Type 2 diabetes mellitus without complications; E78.5 Hyperlipidemia, unspecified; Z87.891 Personal history of nicotine dependence; Z95.1 Presence of aortocoronary bypass graft; Z95.5 Presence of coronary angioplasty implant and graft
CPT/HCPCS: 70450; 71045; 71046; 71275; 80048; 80053; 82948; 83605; 83880; 84484; 85025; 85027; 85379; 85610; 85730; 93005; 93306; 93970; 94640; 94640 76; 99202; 99281; 99285; G0424; J1650; J2405; J7030; J7040